=== PATIENT | male | born 1970 | race Hispanic/Latino ===

== ENCOUNTER 2021-01-28 12:35 | Emergency (ER) | payer SELFPAY ==
[2021-01-28 12:56] VITALS: BP 151/79
--- NOTE | 2021-01-28 13:31 | Emergency Department Report ---
<DELROY REYNOSO A - Last Filed: 01/28/21 14:52> ED Extremity Problem HPI - General Chief complaint: Extremity Problem,Nontraumatic Stated complaint: ABCESS RT ELBOW Time Seen by Provider: 01/28/21 13:30 Source: patient Mode of arrival: Ambulatory Limitations: No Limitations - History of Present Illness Initial comments: Patient is a 50-year-old male that comes to the ER today with right elbow swelling. He states that he saw his primary care a couple weeks ago and she treated him for cellulitis. Patient is a construction plant operator. He denies any trauma to the arm. His elbow is swollen it is not boggy as would be with an abscess or large effusion. The elbow is red. He has full range of motion of the distal and proximal extremity. He is neurovascularly intact. Patient states that he finished the medications that were given to him by his primary care doctor. He states that it was Bactrim. He took it for 5 days. He states the no x-ray was done. Patient denies a history of gout. MD Complaint: extremity pain -: Gradual, days(s) Location: right, elbow History of Same: Yes Severity scale (0 -10): 8 Quality: aching Consistency: constant Improves with: immobilization Worsens with: other Associated Symptoms: denies other symptoms - Related Data Allergies Allergy/AdvReac Type Severity Reaction Status Date / Time No Known Allergies Allergy Verified 01/28/21 14:09 ED Review of Systems Comment: All other systems reviewed and negative ED Past Medical Hx - Past Medical History Previous Medical History?: No Additional medical history: mrsa - Surgical History Past Surgical History?: Yes Additional Surgical History: right hand surgery - Family History Family history: no significant - Social History Smoking Status: Never Smoker Substance Use Type: None ED Physical Exam - General Limitations: No Limitations General appearance: alert, in no apparent distress - Head Head exam: Present: atraumatic, normocephalic - Eye Eye exam: Present: normal appearance - ENT ENT exam: Present: mucous membranes moist - Neck Neck exam: Present: normal inspection - Respiratory Respiratory exam: Present: normal lung sounds bilaterally. Absent: respiratory distress - Cardiovascular Cardiovascular Exam: Present: regular rate, normal rhythm. Absent: systolic murmur, diastolic murmur, rubs, gallop - GI/Abdominal GI/Abdominal exam: Present: soft, normal bowel sounds - Rectal Rectal exam: Present: deferred - Extremities Exam Extremities exam: Present: normal inspection - Expanded Upper Extremity Exam Right Upper Arm exam: Present: normal inspection Elbow exam: Present: tenderness, swelling, erythema. Absent: abrasion, laceration, ecchymosis, deformity, crepidus, dislocation Forearm Wrist exam: Present: normal inspection - Back Exam Back exam: Present: normal inspection - Neurological Exam Neurological exam: Present: alert, oriented X3 - Psychiatric Psychiatric exam: Present: normal affect, normal mood - Skin Skin exam: Present: warm, dry, intact, normal color. Absent: rash ED Medical Decision Making - Lab Data Result diagrams: 01/28/21 14:00 01/28/21 14:00 - Radiology Data Radiology results: report reviewed, image reviewed see report - Medical Decision Making Vital Signs 01/28/21 12:53 Temperature 98.1 F Pulse Rate 73 Respiratory 18 Rate Blood Pressure 151/79 [Right] O2 Sat by Pulse 98 Oximetry X-ray noted. Saqib and sling to the right arm for comfort. Patient encouraged to use RICE therapy. Patient medicated for pain in the ER. Labs 01/28/21 01/28/21 14:00 14:00 WBC 8.9 RBC 4.59 Hgb 14.8 Hct 41.7 MCV 91 MCH 32 MCHC 35 H RDW 14.9 Plt Count 359 Sodium 135 L Potassium 4.4 Chloride 96.3 L Carbon Dioxide 31 H Anion Gap 12 BUN 14 Creatinine 0.8 Estimated GFR > 60 BUN/Creatinine Ratio 18 Glucose 96 Uric Acid 5.0 Calcium 9.8 Labs noted. White count 8.9. Uric acid 5. 1450 on reexam patient has had no change. He remains neurovascularly intact. Patient is being discharged home with discharge plan of care which includes follow-up with Dr. Bradford, immobilization, rice therapy and [id number] NSAIDs for pain. Patient verbalizes an understanding of the discharge plan of care. - Differential Diagnosis fx/ gout/effusion/ cellulitis ED Disposition Clinical Impression: Elbow pain, right Disposition: DC-01 TO HOME OR SELFCARE Is pt being admited?: No Does the pt Need Aspirin: No Condition: Stable Instructions: Joint Pain, [id number] Additional Instructions: SLING FOR COMFORT MOTRIN AND TYLENOL FOR PAIN SLING WILL HELP WITH COMFORT KEEP AREA ICED FOLLOW UP WITH DR BRADFORD, ORTHO MD REFERRAL BELOW Referrals: TUAN BRADFORD MD [Staff Physician] - 3-5 Days Time of Disposition: 14:36 <FLAVIOSUNG - Last Filed: 01/31/21 07:02> ED Review of Systems ROS: Stated complaint: ABCESS RT ELBOW Other details as noted in HPI ED Course Vital Signs 01/28/21 12:53 Temperature 98.1 F Pulse Rate 73 Respiratory 18 Rate Blood Pressure 151/79 [Right] O2 Sat by Pulse 98 Oximetry ED Medical Decision Making - Lab Data Result diagrams: 01/28/21 14:00 01/28/21 14:00 Critical care attestation.: If time is entered above; I have spent that time in minutes in the direct care of this critically ill patient, excluding procedure time. ED Disposition Is pt being admited?: No Does the pt Need Aspirin: No
--- NOTE | 2021-01-28 14:08 | XRay Report ---
Right elbow-2 views INDICATION: pain; recent tx for cellulitis. COMPARISON: None. IMPRESSION: There is moderate soft tissue swelling overlying the olecranon. There is an enthesophyte which may be fractured since there is a lucency at the base but there is no displacement. Otherwise no acute osseous abnormality or malalignment. Signer Name: Vitaliy Rosales MD Signed: 01/28/2021 2:04 PM Workstation Name: [id number]
[2021-01-28 14:17] LABS: Hematocrit 41.7 % (35.5-45.6); Hemoglobin 14.8 gm/dl (11.8-15.2); Mean Corpuscular HGB Conc 35 % (32-34); Mean Corpuscular Volume 91 fl (84-94); Platelet Count 359 K/mm3 (140-440); Red Blood Count 4.59 M/mm3 (3.65-5.03); Red Cell Distribution Width 14.9 % (13.2-15.2)
[2021-01-28 14:44] LABS: BUN/Creatinine Ratio 18; Blood Urea Nitrogen 14 mg/dL (9-20); Calcium 9.8 mg/dL (8.4-10.2); Hemolysis Index 2
[2021-01-28] MEDS ORDERED: HYDROcodone/ACETAMINOPHEN 5-325 MG TAB PO ONE (14:46)
[2021-01-28] MEDS ORDERED: IBUPROFEN 800 MG TAB PO ONE (14:46)
== END 2021-01-28 15:11 | disposition home or self-care (01) ==
LOC: ED 12:35
DX: M25.521 Pain in right elbow (principal); R22.31 Localized swelling, mass and lump, right upper limb; Z79.899 Other long term (current) drug therapy
CPT/HCPCS: 36415; 80048; 84550; 85027; 99284